=== PATIENT | female | born 1985 | race Hispanic/Latino ===

== ENCOUNTER 2018-04-09 20:50 | Emergency (ER) | payer OTHER, SELFPAY ==
[2018-04-09 21:03] VITALS: BP 122/76; PULSE 76; RESP 18; TEMP 36.6; O2SAT 100; BMI 23.6
--- NOTE | 2018-04-09 21:08 | DI.RAD.S_ITS ---
PROCEDURE: XR KNEE RT 1TO2V INDICATIONS: Pain in medial side of the knee and swelling TECHNIQUE: 2 views of the knee were acquired. COMPARISON: None. FINDINGS: Bones: No fractures or dislocations. 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 Soft tissues: No joint effusion. No suspicious soft tissue calcifications. IMPRESSION: No fracture or dislocation. Dictated by: Suly Rayo M.D. on 04/09/2018 at 21:51 Approved by: Suly Rayo M.D. on 04/09/2018 at 21:53
[2018-04-09 22:40] VITALS: BP 114/73; PULSE 88; RESP 16; O2SAT 100
--- NOTE | 2018-04-10 07:21 | ED.LOWEXIN ---
HPI - Extremity Injury (Lower) General Chief Complaint: Extremity Injury, Lower Stated Complaint: RT KNEE SWELLING Time Seen by Provider: 04/09/18 21:20 Source: patient and family Mode of arrival: ambulatory Limitations: no limitations History of Present Illness HPI Narrative: 32-year-old female presents to the emergency department with a chief complaint of right knee pain after a full day activities at a local festival. She denies any specific injury. She denies any history right knee pain. She denies any fever or chills. Worse with range of motion, improved with rest MD complaint: knee injury Onset (ago): hour(s) Place: street/outdoors Severity: mild Relieving factors: rest Exacerbating factors: weight bearing and movement Associated symptoms: swelling and able to partially bear weight Review of Systems Review of Systems All systems reviewed & are unremarkable except as noted in HPI and below Constitutional Denies chills, Denies fever(s), Denies lethargy and Denies weakness Eyes Denies change in vision, Denies eye discharge, Denies irritation and Denies loss of vision ENT Ears, Nose, Mouth, and Throat: Denies change in voice, Denies neck pain and Denies sore throat Cardiovascular Denies chest pain, Denies irregular heart rhythm, Denies lightheadedness, Denies palpitations, Denies dyspnea, Denies dyspnea on exertion and Denies orthopnea Respiratory Denies cough, Denies dyspnea, Denies dyspnea on exertion and Denies wheezing Gastrointestinal Gastrointestinal: Denies abdominal pain, Denies change in bowel habits, Denies diarrhea, Denies nausea and Denies vomiting Genitourinary Denies hematuria, Denies flank pain, Denies urinary incontinence and Denies urinary urgency Musculoskeletal Reports joint swelling, Reports limited range of motion and Denies neck pain Integumentary/Breasts Denies pruritus, Denies erythema, Denies rash and Denies wounds Neurologic Denies confusion, Denies loss of vision and Denies weakness Psychiatric Denies anxiety, Denies confusion, Denies depression, Denies homicidal ideation and Denies suicidal ideation Endocrine Denies palpitations Hematologic/Lymphatic Denies easy bruising Allergic/Immunologic Denies wheezing FORMERLY [facility] Social History Smoking Status: Never smoker Exam Narrative Exam Narrative: GEN: AOx3 and in mild distress EYES: Pupils are equal, round, and reactive to light and accommodation. Extraoccular muscles are intact bilaterally. There is no subconjunctival hemorrhage or exudate. CHEST: Lungs are clear to auscultation bilaterally and free of wheezes, rales, or rhonchi. Heart rate is regular rhythm, there are no murmurs, clicks, rubs, or gallops. There is no chest wall tenderness. ABD: Abdomen is soft and nontender. There is no guarding or rebound. Bowel sounds are normal in all 4 quadrants. There is no mass or organomegaly. EXT: full but painful ROM of R knee. No effusion, warmth or redness. Most tender along medial joint line SKIN: Warm, pink, and dry. No erythema or rash Initial Vital Signs Initial Vital Signs: Vital Signs Temperature 97.8 F 04/09/18 21:03 Pulse Rate 76 04/09/18 21:03 Respiratory Rate 18 04/09/18 21:03 Blood Pressure 122/76 04/09/18 21:03 Pulse Oximetry 100 04/09/18 21:03 MDM - Extremity Injury (Lower) Medical Records Attestation: I reviewed the patient's medical records. Imaging Data Knee Xray: Radiologist's impression: [place] [address] XRay Report Signed Patient: THEA DEGROOT MMR#: [id number] : 1985Acct:[id number] Age/Sex: 32 / FDate of Service: 04/09/18 Loc: ED Accession Number: [id number] Procedure: XR knee RT 1to2V Ordering Provider: Ariadna Forte P.A-C PROCEDURE: XR KNEE RT 1TO2V INDICATIONS: Pain in medial side of the knee and swelling TECHNIQUE: 2 views of the knee were acquired. COMPARISON: None. FINDINGS: Bones: No fractures or dislocations. 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 Soft tissues: No joint effusion. No suspicious soft tissue calcifications. IMPRESSION: No fracture or dislocation. Dictated by: Suly Rayo M.D. on 04/09/2018 at 21:51 Approved by: Suly Rayo M.D. on 04/09/2018 at 21:53 Discharge Plan Departure Patient Disposition: Home Clinical Impression: Acute internal derangement of knee Discharge Date/Time: 04/09/18 22:41 Interventions: ED Discharge Assessment Last Done: 04/09/18 22:40 Instructions: DI for Knee Pain Activity Restrictions/Additional Instructions: *You have been diagnosed with [right knee sprain ] *What to do: *Take medications as directed: Tylenol or Motrin *Follow up with your primary care provider in 5-7 days, call for an appointment. Let them know you were seen in the Emergency Department and that we ask that you be seen in follow up *Return to ER if you should have any new, worsening or concerning symptoms
--- NOTE | 2018-04-10 07:26 | ED_ITS ---
HPI - Extremity Injury (Lower) General Chief Complaint: Extremity Injury, Lower Stated Complaint: RT KNEE SWELLING Time Seen by Provider: 04/09/18 21:20 Source: patient and family Mode of arrival: ambulatory Limitations: no limitations History of Present Illness HPI Narrative: 32-year-old female presents to the emergency department with a chief complaint of right knee pain after a full day activities at a local festival. She denies any specific injury. She denies any history right knee pain. She denies any fever or chills. Worse with range of motion, improved with rest MD complaint: knee injury Onset (ago): hour(s) Place: street/outdoors Severity: mild Relieving factors: rest Exacerbating factors: weight bearing and movement Associated symptoms: swelling and able to partially bear weight Review of Systems Review of Systems All systems reviewed & are unremarkable except as noted in HPI and below Constitutional Denies chills, Denies fever(s), Denies lethargy and Denies weakness Eyes Denies change in vision, Denies eye discharge, Denies irritation and Denies loss of vision ENT Ears, Nose, Mouth, and Throat: Denies change in voice, Denies neck pain and Denies sore throat Cardiovascular Denies chest pain, Denies irregular heart rhythm, Denies lightheadedness, Denies palpitations, Denies dyspnea, Denies dyspnea on exertion and Denies orthopnea Respiratory Denies cough, Denies dyspnea, Denies dyspnea on exertion and Denies wheezing Gastrointestinal Gastrointestinal: Denies abdominal pain, Denies change in bowel habits, Denies diarrhea, Denies nausea and Denies vomiting Genitourinary Denies hematuria, Denies flank pain, Denies urinary incontinence and Denies urinary urgency Musculoskeletal Reports joint swelling, Reports limited range of motion and Denies neck pain Integumentary/Breasts Denies pruritus, Denies erythema, Denies rash and Denies wounds Neurologic Denies confusion, Denies loss of vision and Denies weakness Psychiatric Denies anxiety, Denies confusion, Denies depression, Denies homicidal ideation and Denies suicidal ideation Endocrine Denies palpitations Hematologic/Lymphatic Denies easy bruising Allergic/Immunologic Denies wheezing FOR[facility]LY [facility] Social History Smoking Status: Never smoker Exam Narrative Exam Narrative: GEN: AOx3 and in mild distress EYES: Pupils are equal, round, and reactive to light and accommodation. Extraoccular muscles are intact bilaterally. There is no subconjunctival hemorrhage or exudate. CHEST: Lungs are clear to auscultation bilaterally and free of wheezes, rales, or rhonchi. Heart rate is regular rhythm, there are no murmurs, clicks, rubs, or gallops. There is no chest wall tenderness. ABD: Abdomen is soft and nontender. There is no guarding or rebound. Bowel sounds are normal in all 4 quadrants. There is no mass or organomegaly. EXT: full but painful ROM of R knee. No effusion, warmth or redness. Most tender along medial joint line SKIN: Warm, pink, and dry. No erythema or rash Initial Vital Signs Initial Vital Signs: Vital Signs Temperature 97.8 F 04/09/18 21:03 Pulse Rate 76 04/09/18 21:03 Respiratory Rate 18 04/09/18 21:03 Blood Pressure 122/76 04/09/18 21:03 Pulse Oximetry 100 04/09/18 21:03 MDM - Extremity Injury (Lower) Medical Records Attestation: I reviewed the patient's medical records. Imaging Data Knee Xray: Radiologist's impression: [place] [address] XRay Report Signed Patient: THEA DEGROOT MMR#: [id number] : 1985Acct:[id number] Age/Sex: 32 / FDate of Service: 04/09/18 Loc: ED Accession Number: [id number] Procedure: XR knee RT 1to2V Ordering Provider: Ariadna Forte P.A-C PROCEDURE: XR KNEE RT 1TO2V INDICATIONS: Pain in medial side of the knee and swelling TECHNIQUE: 2 views of the knee were acquired. COMPARISON: None. FINDINGS: Bones: No fractures or dislocations. 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 Soft tissues: No joint effusion. No suspicious soft tissue calcifications. IMPRESSION: No fracture or dislocation. Dictated by: Suly Rayo M.D. on 04/09/2018 at 21:51 Approved by: Suly Rayo M.D. on 04/09/2018 at 21:53 Discharge Plan Departure Patient Disposition: Home Clinical Impression: Acute internal derangement of knee Discharge Date/Time: 04/09/18 22:41 Interventions: ED Discharge Assessment Last Done: 04/09/18 22:40 Instructions: DI for Knee Pain Activity Restrictions/Additional Instructions: *You have been diagnosed with [right knee sprain ] *What to do: *Take medications as directed: Tylenol or Motrin *Follow up with your primary care provider in 5-7 days, call for an appointment. Let them know you were seen in the Emergency Department and that we ask that you be seen in follow up *Return to ER if you should have any new, worsening or concerning symptoms
== END 2018-04-09 22:41 | disposition home or self-care (01) ==
PROVIDERS: Emergency Provider Emergency Medicine
DX: M23.91 Unspecified internal derangement of right knee (principal)
CPT/HCPCS: 73560; 99282; 99283